=== PATIENT | male | born 1940 | race Caucasian/White ===

== ENCOUNTER 2017-02-17 08:19 | Outpatient (CLI) | payer MEDICARE, OTHER ==
[2017-02-17 11:09] LABS: BASOPHILS # (AUTO) 0.1 10^3/uL (0.0-0.1); BASOPHILS % (AUTO) 1.5 %; EOSINOPHILS # (AUTO) 0.7 10^3/uL (0.0-0.7); HCT - HEMATOCRIT 39.4 % (42.0-52.0); HGB - HEMOGLOBIN 13.4 g/dL (14.0-18.0); LYMPHOCYTES # (AUTO) 1.9 10^3/uL (1.5-3.5); LYMPHOCYTES % (AUTO) 20.7 %; MEAN CORPUSCULAR HEMOGLOBIN 34.5 pg (27.0-31.0); MEAN CORPUSCULAR HGB CONC 34.1 g/dL (32.0-36.0); MEAN PLATELET VOLUME 10.3 fL (7.4-11.4); MONOCYTES # (AUTO) 0.8 10^3/uL (0.0-1.0); MONOCYTES % (AUTO) 8.4 %; NEUTROPHILS # (AUTO) 5.6 10^3/uL (1.5-6.6); NEUTROPHILS % (AUTO) 61.4 %; RED CELL DISTRIBUTION WIDTH 14.5 % (12.0-15.0); UNCORRECTED WHITE BLOOD COUNT 9.1 x10^3/uL; WHITE BLOOD COUNT 9.1 x10^3/uL (4.8-10.8)
[2017-02-17 11:24] LABS: PLATELET ESTIMATE, MANUAL NORMAL (130-450,000) (NORMAL); PLATELET MORPHOLOGY 1+ LARGE PLATELETS (NORMAL)
[2017-02-17 11:36] LABS: ALBUMIN/GLOBULIN RATIO 1.5 (1.0-2.2); BILIRUBIN,TOTAL 0.7 mg/dL (0.2-1.0); BUN - BLOOD UREA NITROGEN 26 mg/dL (6-20); CALCIUM 9.3 mg/dL (8.5-10.3); CARBON DIOXIDE - CO2 27 mmol/L (21-32); CHLORIDE 103 mmol/L (101-111); CHOL/HDL RATIO 5.3 (<5.0); CHOLESTEROL 196 mg/dL; CREATININE 1.1 mg/dL (0.6-1.2); GFR - MDRD 65 (>89); GLUCOSE 98 mg/dL (70-100); HDL CHOLESTEROL 37 mg/dL; LDL/HDL RATIO 3.8 (<3.6); POTASSIUM 4.4 mmol/L (3.5-5.0); SODIUM 137 mmol/L (135-145); TOTAL PROTEIN 6.8 g/dL (6.7-8.2); TRIGLYCERIDES 91 mg/dL; VLDL CHOLESTEROL 18 mg/dL
== END 2017-02-17 08:20 | disposition home or self-care (01) ==
LOC: LAB.F 08:19
PROVIDERS: ATTEND Family Medicine
DX: I10 Essential (primary) hypertension (principal); Z12.5 Encounter for screening for malignant neoplasm of prostate; R73.01 Impaired fasting glucose; I50.9 Heart failure, unspecified
CPT/HCPCS: 36415; 80053; 80061; 85025; G0103; 84153

== ENCOUNTER 2017-07-07 14:36 | Outpatient (CLI) | payer MEDICARE, OTHER | END 2017-07-07 14:37 | LOC: LAB.F 14:36 | PROVIDERS: ATTEND Family Medicine | DX: L97.519 Non-pressure chronic ulcer of other part of right foot with unspecified severity (principal) | CPT/HCPCS: 87070; 87205 ==

== ENCOUNTER 2017-11-08 14:48 | Outpatient (CLI) | payer MEDICARE, OTHER ==
[2017-11-08 17:36] LABS: BASOPHILS # (AUTO) 0.1 10^3/uL (0.0-0.1); BASOPHILS % (AUTO) 1.3 %; EOSINOPHILS # (AUTO) 0.6 10^3/uL (0.0-0.7); EOSINOPHILS % (AUTO) 5.8 %; HGB - HEMOGLOBIN 12.9 g/dL (14.0-18.0); LYMPHOCYTES # (AUTO) 2.2 10^3/uL (1.5-3.5); LYMPHOCYTES % (AUTO) 22.8 %; MEAN CORPUSCULAR HEMOGLOBIN 33.9 pg (27.0-31.0); MEAN CORPUSCULAR HGB CONC 33.6 g/dL (32.0-36.0); MEAN CORPUSCULAR VOLUME 100.6 fL (80.0-94.0); MONOCYTES # (AUTO) 0.7 10^3/uL (0.0-1.0); MONOCYTES % (AUTO) 6.9 %; NEUTROPHILS % (AUTO) 63.2 %; PLT - PLATELET COUNT 190 10^3/uL (130-450); RED BLOOD COUNT 3.81 10^6/uL (4.70-6.10); RED CELL DISTRIBUTION WIDTH 14.3 % (12.0-15.0); WHITE BLOOD COUNT 9.6 x10^3/uL (4.8-10.8)
[2017-11-08 17:59] LABS: BUN - BLOOD UREA NITROGEN 22 mg/dL (6-20); CALCIUM 9.1 mg/dL (8.5-10.3); CARBON DIOXIDE - CO2 27 mmol/L (21-32); CHLORIDE 103 mmol/L (101-111); CREATININE 0.9 mg/dL (0.6-1.2); GFR - MDRD 82 (>89); GLUCOSE 102 mg/dL (70-100); SODIUM 136 mmol/L (135-145)
[2017-11-08 18:41] LABS: CRP - C-REACTIVE PROTEIN < 1.0 mg/dL (0-1.0)
[2017-11-08 18:47] LABS: PLATELET ESTIMATE, MANUAL NORMAL (130-450,000) (NORMAL); PLATELET MORPHOLOGY 2+ LARGE PLATELETS (NORMAL); RBC MORPHOLOGY (MULTIPLE) NORMAL APPEARANCE (NORMAL)
== END 2017-11-08 14:49 | disposition home or self-care (01) ==
LOC: LAB.F 14:48
PROVIDERS: ATTEND Family Medicine
DX: L97.519 Non-pressure chronic ulcer of other part of right foot with unspecified severity (principal); I48.0 Paroxysmal atrial fibrillation; I42.9 Cardiomyopathy, unspecified; R73.01 Impaired fasting glucose; I50.9 Heart failure, unspecified
CPT/HCPCS: 36415; 80048; 85025; 85651; 86140

== ENCOUNTER 2017-11-14 14:00 | Outpatient (CLI) | payer MEDICARE, OTHER ==
[2017-11-14] MEDS ORDERED: GADOBUTROL 10 MMOL/10 ML VIAL ONE (15:18)
[2017-11-14] MEDS ORDERED: GADOBUTROL 10 MMOL/10 ML VIAL IVP ONE (16:06)
--- NOTE | 2017-11-15 00:28 | MRI Report ---
EXAM: RIGHT ANKLE/HINDFOOT MRI WITHOUT AND WITH CONTRAST EXAM DATE: 11/14/2017 04:21 PM. CLINICAL HISTORY: Foot ulcer, right. Nonhealing wound bottom of heel for 6 months. COMPARISON: None. TECHNIQUE: Multiplanar, multisequence T1-weighted and fluid-sensitive sequences of the ankle before a nd after administration of intravenous contrast. IV contrast: 9 mL Gadavist. Other: None. FINDINGS: Bones: No fractures or subluxations. No marrow edema or abnormal enhancement. No bone lesions. Articular Cartilage: Unremarkable. Ligaments: The anterior and posterior tibiofibular, anterior and posterior talofibular, and calcaneof ibular ligaments are intact. The deep and superficial deltoid and spring ligaments are intact. Anterior Tendons: The tibialis anterior, extensor hallucis longus, and extensor digitorum longus tend ons are unremarkable. Medial Tendons: The tibialis posterior, flexor digitorum longus, and flexor hallucis longus tendons a re unremarkable. Lateral Tendons: The peroneus brevis and longus are unremarkable. Achilles Tendon: The Achilles tendon is unremarkable. Musculature: Diffuse posterior foot plantar muscle edema. Other: Small fluid collection ankle joint. Small synovial cyst 1.5 x 1.1 cm posterior aspect of dista l tibiofibular joint. The contents of the sinus tarsi and tarsal tunnel are unremarkable. No plantar fasciitis. The subcutaneous tissues are unremarkable. No abscess or cellulitis. IMPRESSION: 1. Shallow ulceration medial heel with no abscess or osteomyelitis. 2. Nonspecific edema plantar foot muscles. [facility] MUSCULOSKELETAL RADIOLOGY SECTION Referring Provider Line: [phone] SITE ID: [id number]
== END 2017-11-14 14:01 | disposition home or self-care (01) ==
LOC: DI 14:00
PROVIDERS: ATTEND Family Medicine
DX: L97.519 Non-pressure chronic ulcer of other part of right foot with unspecified severity (principal); R60.0 Localized edema

== ENCOUNTER 2019-03-03 11:50 | Outpatient (CLI) | payer MEDICARE, OTHER ==
--- NOTE | 2019-03-05 09:54 | Ultrasound Report ---
Reason: INTERMITTENT CLAUDICATION Procedure Date: 03/03/2019 Accession Number: [id number] / [id number] Procedure: US - Ankle Brachial Index CPT Code: FULL RESULT: EXAM: BILATERAL ANKLE/BRACHIAL INDEX EXAM DATE: 03/03/2019 12:40 PM. CLINICAL HISTORY: INTERMITTENT CLAUDICATION. COMPARISON: None. TECHNIQUE: A blood pressure cuff and pulse volume recording Doppler ultrasound was used to evaluate the arterial pressures in the arms and ankle. No images were acquired. FINDINGS: Brachial pressure: Right brachial artery: 142 mmHg, index 1.00 Left brachial artery: 134 mmHg, index 1.00 Right ankle pressures:: 66 mmHg, index 0.46 Left ankle pressures: 76 mmHg, index 0.56 IMPRESSION: 1. Right ankle/brachial index: 0.46. 2. Left ankle/brachial index: 0.56. ANKLE/BRACHIAL INDEX REFERENCE STANDARDS 1.0-1.4: Normal 0.90-0.99: Borderline < 0.9: Abnormal [facility]
== END 2019-03-03 11:51 | disposition home or self-care (01) ==
LOC: DI 11:50
PROVIDERS: ATTEND Registered Nurse
DX: I73.9 Peripheral vascular disease, unspecified (principal)
CPT/HCPCS: 93922

== ENCOUNTER 2019-03-29 08:02 | Outpatient (CLI) | payer MEDICARE, OTHER ==
--- NOTE | 2019-03-29 17:06 | Ultrasound Report ---
Reason: PERIPHERAL VASCULAR DISEASE Procedure Date: 03/29/2019 Accession Number: [id number] / [id number] Procedure: US - Duplex Lwr Ext Arterial Bilat CPT Code: FULL RESULT: EXAM: Bilateral Lower Extremity Arterial Doppler Ultrasound EXAM DATE: 03/29/2019 09:40 AM. CLINICAL HISTORY: Peripheral vascular disease. Bilateral calf claudication after 1 block. History of hypertension. History of smoking more than 50 years, cigars. COMPARISON: None. TECHNIQUE: Real-time sonographic vascular imaging was performed by the ammunition and explosives handler, utilizing color-flow, Doppler flow, and spectral analysis. Multiple outside sales account representative static images were saved for review. FINDINGS: Scattered calcified plaque in bilateral lower extremity arteries. Right Lower Extremity: DOOR MACHINE OPERATOR: PSV 138 cm/sec. Triphasic waveform. PSFA: PSV 97 cm/sec. Biphasic waveform. MSFA: Occluded. DSFA: Occluded. PFA: PSV 101 cm/sec. Monophasic waveform. POP: PSV 23 cm/sec. Monophasic waveform. GARFIELD: PSV 43 cm/sec. Monophasic waveform. SHEET WRITER: PSV 44 cm/sec. Monophasic waveform. ADELINA: PSV 18 cm/sec. Monophasic waveform. DPA: PSV 31 cm/sec. Monophasic waveform. Left Lower Extremity: DOOR MACHINE OPERATOR: PSV 156 cm/sec. Monophasic waveform. PSFA: PSV 40 cm/sec. Monophasic waveform. MSFA: Occluded. DSFA: PSV 27 cm/sec. Monophasic waveform. PFA: PSV 285 cm/sec. Monophasic waveform. POP: PSV 45 cm/sec. Monophasic waveform. GARFIELD: PSV 31 cm/sec. Monophasic waveform. SHEET WRITER: PSV 25 cm/sec. Monophasic waveform. ADELINA: PSV 8 cm/sec. Monophasic waveform. DPA: PSV 19 cm/sec. Monophasic waveform. IMPRESSION: 1. 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 Right popliteal and calf arteries are patent with monophasic Doppler waveforms. 2. Left mid femoral artery is occluded. Diminished monophasic flow within the distal femoral artery may be from reconstitution via collateral vessels. Monophasic Doppler flow within left popliteal artery and calf arteries. 3. Elevated peak systolic velocity within the left profunda femoral artery, concerning for 50% stenosis. 4. Monophasic Doppler waveform within left common femoral artery raiseS concern for greater than 50% more proximal stenosis. Consider CTA if clinically warranted. [facility] The above call report findings were discussed with Dr. Quezada by Dr. Mariano Fontenot at 05:07 PM on 03/29/2019.
== END 2019-03-29 08:03 | disposition home or self-care (01) ==
LOC: DI 08:02
PROVIDERS: ATTEND Registered Nurse
DX: I73.9 Peripheral vascular disease, unspecified (principal); I77.1 Stricture of artery; I70.202 Unspecified atherosclerosis of native arteries of extremities, left leg
CPT/HCPCS: 93925

== ENCOUNTER 2021-03-08 17:50 | Observation (INO) | payer MEDICARE, OTHER ==
[2021-03-08 18:35] LABS: BASOPHILS # (AUTO) 0.1 10^3/uL (0.0-0.1); BASOPHILS % (AUTO) 0.6 %; EOSINOPHILS # (AUTO) 0.1 10^3/uL (0.0-0.7); EOSINOPHILS % (AUTO) 0.6 %; HCT - HEMATOCRIT 34.5 % (42.0-52.0); HGB - HEMOGLOBIN 11.7 g/dL (14.0-18.0); LYMPHOCYTES # (AUTO) 1.3 10^3/uL (1.5-3.5); LYMPHOCYTES % (AUTO) 8.8 %; MEAN CORPUSCULAR HEMOGLOBIN 34.1 pg (27.0-31.0); MEAN CORPUSCULAR HGB CONC 33.9 g/dL (32.0-36.0); MEAN CORPUSCULAR VOLUME 100.6 fL (80.0-94.0); MEAN PLATELET VOLUME 11.1 fL (7.4-11.4); MONOCYTES # (AUTO) 0.7 10^3/uL (0.0-1.0); MONOCYTES % (AUTO) 4.9 %; NEUTROPHILS % (AUTO) 84.8 %; PLT - PLATELET COUNT 189 10^3/uL (130-450); RED BLOOD COUNT 3.43 10^6/uL (4.70-6.10); RED CELL DISTRIBUTION WIDTH 13.5 % (12.0-15.0); WHITE BLOOD COUNT 14.2 x10^3/uL (4.8-10.8)
[2021-03-08 18:47] LABS: ALBUMIN 4.4 g/dL (3.2-5.5); ALBUMIN/GLOBULIN RATIO 1.3 (1.0-2.2); CALCIUM 9.4 mg/dL (8.5-10.3); CREATININE 1.1 mg/dL (0.6-1.2); POTASSIUM 4.6 mmol/L (3.5-5.0); TOTAL PROTEIN 7.7 g/dL (6.7-8.2)
[2021-03-08 20:32] LABS: BILIRUBIN,URINE NEGATIVE (NEGATIVE); GLUCOSE, URINE (UA) NEGATIVE (NEGATIVE); KETONES,URINE (UA) 15 mg/dL (NEGATIVE); LEUKOCYTE ESTERASE, URINE NEGATIVE (NEGATIVE); NITRITE,URINE NEGATIVE (NEGATIVE); OCCULT BLOOD,URINE TRACE-INTA (NEGATIVE); PROTEIN,URINE NEGATIVE (NEGATIVE); UROBILINOGEN,URINE 0.2 (NORMAL) E.U./dL (NORMAL)
[2021-03-08 20:34] LABS: CLARITY,URINE CLEAR (CLEAR)
--- NOTE | 2021-03-08 21:31 | Ultrasound Report ---
PROCEDURE: Abdomen Limited INDICATIONS: RUQ pain/nausea TECHNIQUE: Real-time focused scanning was performed of the right upper quadrant, with image documentation. COMPARISON: None. FINDINGS: Limited evaluation limited due to limited patient breath-hold demonstrates a coarse sonographic echot exture suggestive of fatty infiltration. There are echogenic shadowing gallstones as well as biliary sludge. Gallstones are noted in the regio n of the gallbladder neck. There is no bladder wall thickening measuring up to approximately 5 mm. No definite pericholecystic fluid or reported sonographic Love sign. No intra or extra hepatic biliary ductal dilatation. The visualized bile duct measures approximately 3 to 4 mm. The right kidney measures 13.7 cm. No hydronephrosis. There are cysts in the right kidney measuring u p to approximately 6.4 cm in the superior pole and 4.5 cm in the inferior pole. IMPRESSION: 1. Cholelithiasis including gallstones in the region of the gallbladder neck with mild wall thickenin g. Although no definite pericholecystic fluid is identified, the findings are suspicious for developi ng cholecystitis. Recommend correlation clinically. 2. No biliary ductal dilatation. Reviewed by: Souleymane Casey MD on 03/08/2021 9:30 PM PDT Approved by: Souleymane Casey MD on 03/08/2021 9:30 PM PDT Station ID: [id number]
[2021-03-08] MEDS ORDERED: SODIUM CHLORIDE 0.9% 1,000 ML IV STA (21:38)
[2021-03-08] MEDS ORDERED: HYDROmorphone 1 MG/ML CARPUJECT IVP STA (21:38)
[2021-03-08] MEDS ORDERED: ONDANSETRON 4 MG/2 ML VIAL IVP STA (21:38)
--- NOTE | 2021-03-08 21:40 | ED Physician Documentation ---
History of Present Illness - Stated complaint Stated Complaint: UPPER ABD PX,NAUSEA - Chief complaint Chief Complaint: Abd Pain - History obtained from History obtained from: Patient, Family - Additonal information Additional information: Patient comes emergency department for chief complaint of right upper quadrant pain and nausea for the last 2 days. Patient states the pain has been so bad that is kept him awake all night for the last 2 nights. Patient denies ever having had these symptoms before. No fevers or chills. No jaundice that he has noticed. He states that he has not had any change in his bowel habits. No urinary symptoms. No cough or shortness of breath. No other complaints at this time. Review of Systems Ten Systems: 10 systems reviewed and negative Constitutional: reports: Reviewed and negative Eyes: reports: Reviewed and negative Ears: reports: Reviewed and negative Nose: reports: Reviewed and negative Throat: reports: Reviewed and negative Cardiac: reports: Reviewed and negative Respiratory: reports: Reviewed and negative GI: reports: Abdominal Pain, Nausea. denies: Vomiting : reports: Reviewed and negative Skin: reports: Reviewed and negative Musculoskeletal: reports: Reviewed and negative Neurologic: reports: Reviewed and negative Psychiatric: reports: Reviewed and negative Endocrine: reports: Reviewed and negative Immunocompromised: reports: Reviewed and negative PD PAST MEDICAL HISTORY - Past Medical History Past Medical History: Yes Cardiovascular: Congestive heart failure, Hypertension, Atrial fibrillation, Other Endocrine/Autoimmune: Other Derm: Eczema - Past Surgical History Past Surgical History: Yes Cardiovascular: Valve replacement - Present Medications Home Medications: Ambulatory Orders Medication Instructions Recorded Confirmed Ascorbic Acid [Vitamin C] 1,000 mg PO DAILY 07/21/17 03/08/21 Aspirin [Aspirin EC] 81 mg PO DAILY 07/21/17 03/08/21 Glucosamine Sulfate 1,500 mg PO DAILY 07/21/17 03/08/21 Metoprolol Tartrate [Lopressor] 50 mg PO DAILY 07/21/17 03/08/21 Multivit-Min/FA/Lycopen/Lutein 1 tab PO DAILY 07/21/17 03/08/21 [Centrum Silver Men Tablet] Spironolactone 25 mg PO DAILY 07/21/17 03/08/21 Ubidecarenone [Co Q-10] 300 mg PO DAILY 07/21/17 03/08/21 lisinopriL [Lisinopril] 20 mg PO DAILY 07/21/17 03/08/21 - Allergies Allergies/Adverse Reactions: Allergies Allergy/AdvReac Type Severity Reaction Status Date / Time oxycodone AdvReac Nausea Verified 03/08/21 18:10 - Social History Does the pt smoke?: Yes Smoking Status: Current every day smoker Does the pt have substance abuse?: No PD ED PE NORMAL - Vitals Vital signs reviewed: Yes - General General: Alert and oriented X 3, No acute distress, Well developed/nourished - HEENT HEENT: Atraumatic, PERRL, EOMI, Moist mucous membranes - Neck Neck: Supple, no meningeal sign - Cardiac Cardiac: RRR, No murmur - Respiratory Respiratory: No respiratory distress, Clear bilaterally - Abdomen Abdomen: Soft, Non distended, Other (Moderate right upper quadrant tenderness, no rebound or guarding.) - Back Back: No CVA TTP - Derm Derm: Normal color, Warm and dry, No rash - Extremities Extremities: No deformity, No edema - Neuro Neuro: Alert and oriented X 3, director of group sales 2-12 intact, Normal speech - Psych Psych: Normal mood, Normal affect Results - Vitals Vitals: Vital Signs - 24 hr 03/08/21 03/08/21 18:03 19:32 Temperature 36.8 C Heart Rate 60 55 L Respiratory 16 17 Rate Blood Pressure 191/56 H 200/73 H O2 Saturation 99 98 Oxygen O2 Source Room air - Labs Labs: Laboratory Tests 03/08/21 03/08/21 03/08/21 18:30 18:30 20:25 WBC 14.2 H RBC 3.43 L Hgb 11.7 L Hct 34.5 L MCV 100.6 H MCH 34.1 H MCHC 33.9 RDW 13.5 Plt Count 189 MPV 11.1 Neut # (Auto) 12.0 H Lymph # (Auto) 1.3 L [place] # (Auto) 0.7 Eos # (Auto) 0.1 Baso # (Auto) 0.1 Absolute Nucleated RBC 0.00 Nucleated RBC % 0.0 Sodium 132 L Potassium 4.6 Chloride 96 L Carbon Dioxide 25 Anion Gap 11.0 BUN 27 H Creatinine 1.1 Estimated GFR (MDRD) 65 L Glucose 133 H Calcium 9.4 Total Bilirubin 1.0 AST 17 ALT 17 Alkaline Phosphatase 53 Total Protein 7.7 Albumin 4.4 Globulin 3.3 Albumin/Globulin Ratio 1.3 Lipase 29 Urine Color YELLOW Urine Clarity CLEAR Urine pH 5.0 Ur Specific [place] 1.025 Urine Protein NEGATIVE Urine Glucose (UA) NEGATIVE Urine Ketones 15 H Urine Occult Blood TRACE-INTA Urine Nitrite NEGATIVE Urine Bilirubin NEGATIVE Urine Urobilinogen 0.2 (NORMAL) Ur Leukocyte Esterase NEGATIVE Ur Microscopic Review NOT INDICATED Urine Culture Comments NOT INDICATED - Rads (name of study) US abd Radiology: Prelim report reviewed, EMP read indepedently, See rad report (Acute cholecystitis) PD MEDICAL DECISION MAKING - ED course Complexity details: reviewed old records ( on) ED course: Patient was worked up with labs and ultrasound of the abdomen, which showed a 1.8 cm stone in the neck of the gallbladder and a thickened gallbladder wall at over 4 mm. Patient was treated with antibiotics and IV fluids and analgesia, as well as antiemetics. I spoke with Dr. Higuera, who is on-call for surgery, and he agreed to admit the patient to his service. Final impression: Acute cholecystitis. Disposition: Admit to surgery in serious condition. Departure - Departure Disposition: ED Place in Observation Condition: Serious Discharge Date/Time: 03/08/21 22:35
[2021-03-08] MEDS ORDERED: AMPICILLIN/SULBACTAM 3 GM in SODIUM CHLORIDE 0.9% MINIBAG 100 ML IV STA (21:44)
[2021-03-08] MEDS ORDERED: HYDROmorphone 0.5 MG/0.5 ML SYRINGE IVP PRN (21:59)
[2021-03-08] MEDS ORDERED: ONDANSETRON 4 MG/2 ML VIAL IVP PRN (21:59)
[2021-03-08] MEDS ORDERED: ACETAMINOPHEN 325 MG TABLET PO PRN (21:59)
[2021-03-08] MEDS ORDERED: SODIUM CHLORIDE FLUSH 0.9% 10 ML SYRINGE IVP PRN (21:59)
[2021-03-08] MEDS ORDERED: ONDANSETRON ODT 4 MG TABLET TL PRN (21:59)
[2021-03-08] MEDS ORDERED: PROCHLORPERAZINE 10 MG/2 ML VIAL IVP PRN (21:59)
[2021-03-08] MEDS ORDERED: ceFAZolin 2 GM/50 ML 2 GM/50 ML BAG IV SCH (23:00)
[2021-03-08] MEDS: D5.45NS W/20 MEQ KCL 1,000 ML IV SCH (23:01)
[2021-03-08 23:53] LABS: CORONAVIRUS 229E-RESP PCR NOT DETECTED; CORONAVIRUS HKU1-RESP PCR NOT DETECTED; CORONAVIRUS NL63-RESP PCR NOT DETECTED; CORONAVIRUS OC43-RESP PCR NOT DETECTED; HUMAN METAPNEUMOVIRUS NOT DETECTED; INFLUENZA A- RESP PCR PANEL NOT DETECTED; RHINOVIRUS/ENTEROVIRUS NOT DETECTED; SARS-CoV-2 -RESP PCR PANEL NOT DETECTED
[2021-03-08 23:54] LABS: B. PARAPERTUSSIS- RESP PCR PAN NOT DETECTED; B. PERTUSSIS- RESP PCR PANEL NOT DETECTED; C. PNEUMONIAE- RESP PCR PANEL NOT DETECTED; INFLUENZA B - RESP PCR PANEL NOT DETECTED; M. PNEUMONIAE- RESP PCR PANEL NOT DETECTED; PARAINFLUENZA VIRUS 1 NOT DETECTED; PARAINFLUENZA VIRUS 2 NOT DETECTED; PARAINFLUENZA VIRUS 3 NOT DETECTED; PARAINFLUENZA VIRUS 4 NOT DETECTED; RSV- RESP PCR PANEL NOT DETECTED
[2021-03-09] MEDS: AMPICILLIN/SULBACTAM 3 GM in SODIUM CHLORIDE 0.9% MINIBAG 100 ML IV SCH ×2 (04:26→12:11)
[2021-03-09] MEDS: SODIUM CHLORIDE FLUSH 0.9% 10 ML SYRINGE IVP SCH ×2 (04:26→08:40)
[2021-03-09] MEDS ORDERED: BUPIVACAINE 0.25% PF 30 ML VIAL ONE (07:33)
[2021-03-09] MEDS ORDERED: DEXAMETHASONE 4 MG/ML VIAL ONE (07:39)
[2021-03-09] MEDS ORDERED: ROCURONIUM 50 MG/5 ML VIAL ONE (07:39)
[2021-03-09] MEDS ORDERED: SEVOFLURANE 250 ML LIQUID INH ONE (07:39)
[2021-03-09] MEDS ORDERED: ONDANSETRON 4 MG/2 ML VIAL ONE (07:39)
[2021-03-09] MEDS ORDERED: PROPOFOL 200 MG/20 ML VIAL IVP ONE (07:39)
[2021-03-09] MEDS ORDERED: fentaNYL 100 MCG/2 ML VIAL ONE (07:39)
[2021-03-09] MEDS ORDERED: LIDOCAINE-MPF 2% 5 ML VIAL ONE (07:39)
--- NOTE | 2021-03-09 07:46 | ANESTHESIA ---
Pre-Anesthesia VS, & Labs - Diagnosis cholelithiasis - Procedure Laparoscopic Cholecystectomy Vital Signs: Temp Pulse Resp BP Pulse Ox 36.7 C 77 20 125/57 L 97 03/09/21 04:41 03/09/21 04:41 03/09/21 04:41 03/09/21 04:41 03/09/21 04:41 Height: 5 ft 11 in Weight (kg): 90.5 kg Body Mass Index: 27.8 BMI Classification: Overweight - NPO >8 hours - Lab Results Current Lab Results: Laboratory Tests 03/08/21 18:30: Sodium 132 L, Potassium 4.6, Chloride 96 L, Carbon Dioxide 25, Anion Gap 11.0, BUN 27 H, Creatinine 1.1, Estimated GFR (MDRD) 65 L, Glucose 133 H, Calcium 9.4, Total Bilirubin 1.0, AST 17, ALT 17, Alkaline Phosphatase 53, T otal Protein 7.7, Albumin 4.4, Globulin 3.3, Albumin/Globulin Ratio 1.3, Lipase 29 03/08/21 18:30: WBC 14.2 H, RBC 3.43 L, Hgb 11.7 L, Hct 34.5 L, MCV 100.6 H, MCH 34.1 H, MCHC 33.9, RDW 13.5, Plt Count 189, MPV 11.1, Neut # (Auto) 12.0 H, Lymph # (Auto) 1.3 L, [place] # (Auto) 0.7, Eos # (Auto) 0.1, Baso # (Auto) 0.1, Absolute Nucleated RBC 0.00, Nucleated RBC % 0.0 Lab results reviewed: Yes Fish Bones: 03/08/21 18:30 03/08/21 18:30 Home Medications and Allergies Active Medications Acetaminophen (Acetaminophen 325 Mg Tablet) 650 mg PO Q4HR PRN PRN Reason: Pain 1 to 4 Hydromorphone HCl (Hydromorphone 0.5 Mg/0.5 Ml Syringe) 0.5 mg IVP Q2H PRN PRN Reason: Pain 8 to 10 Potassium Chloride/Dextrose/Sod Cl (D5.45ns W/20 Meq Kcl) 1,000 mls @ 100 mls/hr IV .Q10H EREN Last Infusion: 03/09/21 05:03 Dose: 100 mls/hr Documented by: Ampicillin Sodium/Sulbactam (Sodium 3 gm/ Sodium Chloride) 100 mls @ 200 mls/hr IV Q6H [facility] Last Infusion: 03/09/21 05:02 Dose: Infused Documented by: Metoprolol Tartrate (Metoprolol Tartrate 50 Mg Tablet) 25 mg PO BID [facility] Ondansetron HCl (Ondansetron Odt 4 Mg Tablet) 4 mg TL Q6HR PRN PRN Reason: Nausea / Vomiting Ondansetron HCl (Ondansetron 4 Mg/2 Ml Vial) 4 mg IVP Q6HR PRN PRN Reason: Nausea / Vomiting Prochlorperazine Edisylate (Prochlorperazine 10 Mg/2 Ml Vial) 10 mg IVP Q6HR PRN PRN Reason: Nausea / Vomiting Last Admin: 03/09/21 01:45 Dose: 10 mg Documented by: Sodium Chloride (Sodium Chloride Flush 0.9% 10 Ml Syringe) 10 ml IVP PRN PRN PRN Reason: NEEDED PER PROVIDER ORDERS Sodium Chloride (Sodium Chloride Flush 0.9% 10 Ml Syringe) 10 ml IVP 0100,0900,1700 [facility] Last Admin: 03/09/21 04:26 Dose: 10 ml Documented by: Ascorbic Acid [Vitamin C] 1,000 mg PO DAILY 07/21/17 Aspirin [Aspirin EC] 81 mg PO DAILY 07/21/17 Glucosamine Sulfate 1,500 mg PO DAILY 07/21/17 Metoprolol Tartrate [Lopressor] 50 mg PO DAILY 07/21/17 Multivit-Min/FA/Lycopen/Lutein [Centrum Silver Men Tablet] 1 tab PO DAILY 07/21/17 Spironolactone 25 mg PO DAILY 07/21/17 Ubidecarenone [Co Q-10] 300 mg PO DAILY 07/21/17 lisinopriL [Lisinopril] 20 mg PO DAILY 07/21/17 Allergies/Adverse Reactions: Allergies Allergy/AdvReac Type Severity Reaction Status Date / Time oxycodone AdvReac Nausea Verified 03/08/21 18:10 Anes History & Medical History - Anesthetic History Anesthesia Complications: reports: No previous complications - Medical History Cardiovascular: reports: Congestive heart failure, Hypertension, Atrial fibrillation, Valve disorder (S/P tissue AVR), Other Endocrine/Autoimmune: reports: Other Skin: reports: Eczema Smoking Status: Current every day smoker - Surgical History Cardiothoracic: reports: Valve replacement Orthopedic: reports: Other (knee and shoulder arthroscopies) Exam General: Alert Dental: WNL Mouth Opening: Greater than 4 Fingerbreadths Neck Mobility: Normal Mallampati classification: II Respiratory: Lungs clear Cardiovascular: Regular rate Plan Anesthesia Type: General Consent for Procedure(s) Verified and Reviewed: Yes Code Status: Attempt Resuscitation (I had lengthy discussion as 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 He wished to be full code during surgical time but not prolonged efforts if it is thought he would be neurologically injured.) ASA classification: 3-Severe systemic disease Is this case an emergency?: Yes
[2021-03-09] MEDS ORDERED: METOPROLOL TARTRATE 50 MG TABLET PO SCH (09:00)
--- NOTE | 2021-03-09 09:04 | HISTORY & PHYSICAL EXAMINATION ---
Chief Complaint - Chief Complaint Chief Complaint: rigth upper quadrant pain for 3 days now History of Present Illness - Admitted From Admitted From:: ED - History Obtained From Records Reviewed: yes History obtained from: pt Exam Limitations: none - History of Present Illness HPI Comment/Other: 3 days of significant right upper quadrant pain. Not improving. No similar symptoms in the past History - Past Medical History Cardiovascular: reports: Congestive heart failure, Hypertension, Atrial fibrillation, Valve disorder (S/P tissue AVR), Other Endocrine/Autoimmune: reports: Other Derm: reports: Eczema MRSA Hx?: No - Past Surgical History Ortho: reports: Other (knee and shoulder arthroscopies) Cardiovascular: reports: Valve replacement Meds/Allgy - Home Medications Home Medications: Ambulatory Orders Medication Instructions Recorded Confirmed Ascorbic Acid [Vitamin C] 1,000 mg PO DAILY 07/21/17 03/08/21 Aspirin [Aspirin EC] 81 mg PO DAILY 07/21/17 03/08/21 Glucosamine Sulfate 1,500 mg PO DAILY 07/21/17 03/08/21 Metoprolol Tartrate [Lopressor] 50 mg PO DAILY 07/21/17 03/08/21 Multivit-Min/FA/Lycopen/Lutein 1 tab PO DAILY 07/21/17 03/08/21 [Centrum Silver Men Tablet] Spironolactone 25 mg PO DAILY 07/21/17 03/08/21 Ubidecarenone [Co Q-10] 300 mg PO DAILY 07/21/17 03/08/21 lisinopriL [Lisinopril] 20 mg PO DAILY 07/21/17 03/08/21 - Allergies Allergies/Adverse Reactions: Allergies Allergy/AdvReac Type Severity Reaction Status Date / Time oxycodone AdvReac Nausea Verified 03/08/21 18:10 Review of Systems - Other Findings Other Findings: 10 pt ros as above otherwise unremarkable denies heart or lung problem currently. Exam - Vital Signs Reviewed Vital Signs: Yes Vital Signs: Vital Signs x48h Temp Pulse Resp BP Pulse Ox 03/09/21 07:49 36.6 C 75 18 132/51 H 95 03/09/21 04:41 36.7 C 77 20 125/57 L 97 - Physical Exam General Appearance: positive: Alert Eyes Bilateral: positive: PERRL, EOMI, No scleral icterus ENT: positive: No signs of dehydration Neck: positive: No JVD Respiratory: positive: No respiratory distress, Breath sounds nml Cardiovascular: positive: Regular rate & rhythm Abdomen: positive: No distention, Tenderness (ruq) Neurologic/Psychiatric: positive: Oriented x3 Conclusion/Plan - Lab Results Lab results reviewed: Yes Fish Bones: 03/08/21 18:30 03/08/21 18:30 - Diagnostic Imaging Results Diagnostic Imaging Results: positive: Read independently (large gallstones causing gallbladder obstruction) - Other Other Results/Comments: cholecystitis. plan lap micaela. parq held and consent obtained
[2021-03-09] MEDS ORDERED: ePHEDrine 50 MG/ML VIAL IVP ONE (09:42)
[2021-03-09] MEDS ORDERED: PHENYLEPHRINE 10 MG/ML VIAL ONE (09:42)
[2021-03-09] MEDS ORDERED: ACETAMINOPHEN 1,000 MG/100 ML 100 ML IV ONE (09:42)
[2021-03-09] MEDS ORDERED: BUPIVACAINE 0.25% PF 30 ML VIAL SUBQ ONE (09:59)
[2021-03-09] MEDS ORDERED: ONDANSETRON 4 MG/2 ML VIAL IVP PRN ×2 (10:03→11:21)
[2021-03-09] MEDS ORDERED: HYDROmorphone 0.5 MG/0.5 ML SYRINGE IVP PRN ×2 (10:03→11:21)
[2021-03-09] MEDS ORDERED: ePHEDrine 50 MG/ML VIAL IVP PRN (10:03)
[2021-03-09] MEDS ORDERED: NALOXONE 0.4 MG/ML VIAL IVP PRN (10:03)
[2021-03-09] MEDS ORDERED: METOCLOPRAMIDE 10 MG/2 ML VIAL IVP PRN (10:03)
[2021-03-09] MEDS ORDERED: ATROPINE ABBOJECT 1 MG/10 ML SYRINGE IVP PRN (10:03)
[2021-03-09] MEDS ORDERED: fentaNYL 100 MCG/2 ML VIAL IVP PRN (10:03)
[2021-03-09] MEDS ORDERED: MORPHINE 2 MG/ML CARPUJECT IVP PRN (10:03)
[2021-03-09] MEDS: D5.45NS W/20 MEQ KCL 1,000 ML IV SCH ×2 (10:30→12:46)
[2021-03-09] MEDS ORDERED: LACTATED RINGERS 1,000 ML IV SCH (11:00)
[2021-03-09] MEDS ORDERED: HYDROcod/ACETAM 5/325 MG TABLET PO PRN (11:21)
--- NOTE | 2021-03-09 11:21 | OPERATIVE REPORT ---
Operative Report - General Admit Date: 03/08/21 Procedure Date: 03/09/21 Planned Procedure: lap micaela Pre-Op Diagnosis: cholecystitis Procedure Performed: lap cholecystectomy Post Op Diagnosis: cholecystitis - Procedure Note Primary Surgeon: bernarda neri Anesthesia Technique: General ET tube, Local Pathology: gallbladder Estimated Blood Loss (mL): 15 Drain/Tube Type: Other (none) Indications: cholecystitis Findings: cholecystitis Complications: none - Other Other Information/Narrative: The patient was properly identified, brought to the operating room and placed in supine position. Sequential compression devices were placed. General endotracheal anesthesia was induced. The patient was prepped and draped in a sterile fashion and given preoperative antibiotics. Local anesthetic was given to incision areas. An incision was made in the periumbilical area. Dissection proceeded down to fascia. The fascia was incised lifted upwards and abdomen entered with a Veress needle. CO2 was insufflated to a pressure of 15. An 11 mm trocar followed by a 30 degree scope was placed. There was no evidence of injury from Veress needle or trocar placement. Under direct vision 2 5 mm trochars were placed in the right upper quadrant and an 11 mm trocar was placed in the epigastrium. Body of the gallbladder was retracted anterior. Lateral attachments were partially taken down further mobilizing the gallbladder more anterior and away from the duodenum. The infundibulum of the gallbladder was then retracted right lateral and caudad. With minimal use of cautery a large bare cystic plate area or window was carefully created. The cystic duct was inspected from right lateral and left lateral positions. [] The cystic duct was then clipped at the gallbladder and 3 times slightly proximal and sharply divided. The cystic artery was clipped at the gallbladder and then 2 times slightly proximal and sharply divided. The gallbladder was mobilized off from the bed of the liver with hook cautery. The gallbladder was placed in Endo Catch bag and brought out through the epigastric trocar site. Hemostasis was assured. Trochars were removed under direct vision. Fascia at the larger trocar sites was closed with [id number] are running 0 Vicryl suture. Subcutaneous tissue was irrigated and skin closed with interrupted 4-0 Monocryl. Dressings were applied. Patient tolerated the procedure well was awakened and brought to recovery in good condition.
[2021-03-09] MEDS ORDERED: LACTATED RINGERS 200 ML IV ONE (11:23)
--- NOTE | 2021-03-09 16:38 | PHARMACY PROGRESS NOTE ---
- Best Possible Medication History Admit Date and Time: 03/08/21 8094 Processed by: Nursing Medication History completed: Yes As the person ultimately responsible for medication therapy, providers are able to order a medication from an existing home medication list in [facility] via the "Reconcile Routine" prior to Confirmation of that medication by it technical support specialist. Such practice is discouraged except when the physician, in their clinical judgment, deems that a medical need exists for a medication without regard to previous use.
[2021-03-09 18:52] VITALS: BP 115/50
--- NOTE | 2021-03-09 18:57 | ANESTHESIA POST OP EVALUATION ---
Anesthesia Post Eval - Post Anesthesia Eval Vitals: Last Vital Signs Temp 36.4 C L 03/09/21 18:00 Pulse 79 03/09/21 18:00 Resp 18 03/09/21 18:00 BP 115/50 L 03/09/21 18:00 Pulse Ox 96 03/09/21 18:00 CV Function Including HR & BP: Stable Pain Control: Satisfactory Nausea & Vomiting: Negative Mental Status: Baseline Respiratory Status: Airway Patent Hydration Status: Satisfactory Anesthesia Complications: None
[2021-03-09] MEDS ORDERED: METOPROLOL TARTRATE 25 MG TABLET PO SCH (21:00)
--- NOTE | 2021-03-26 08:19 | PROVIDER PROGRESS NOTE ---
Subjective - General Admit Date: 03/08/21 Procedure Date: 03/09/21 (late entry) Post Op Days: 17 Procedure Performed: aris micaela - Review of Systems Wound/Incisions: positive: Dressing dry and intact General: positive: No symptoms Pulmonary: positive: No symptoms Cardiovascular: positive: No symptoms Gastrointestinal: positive: No symptoms Objective - Lab Results Lab Results: 03/08/21 18:30 03/08/21 18:30
--- NOTE | 2021-03-26 08:23 | Discharge Plan ---
Discharge Plan Problem Reviewed?: Yes Disposition: Home, Self Care Condition: Good Prescriptions: HYDROcod/ACETAM 5/325 [[place] 5/325] 1 each PO Q6H PRN #30 tablet PRN Reason: Pain Ondansetron Odt [Zofran Odt] 4 mg PO Q6H PRN #10 tablet PRN Reason: Nausea / Vomiting Diet: Regular Activity Restrictions: No Restrictions Shower Restrictions: No Driving Restrictions: No No Smoking: If you smoke, Please STOP! Call for help. Follow-up with: Naya Tee ARNP [Primary Care Provider] -
== END 2021-03-09 18:45 | disposition home or self-care (01) ==
LOC: ED 17:50 → MS3 21:59
PROVIDERS: ADMIT Surgery; ATTEND Surgery
PROC: 0FT44ZZ Resection of Gallbladder, Percutaneous Endoscopic Approach (ICD-10-PCS; principal; 2021-03-09 09:00)
DX: K80.12 Calculus of gallbladder with acute and chronic cholecystitis without obstruction (principal); I11.0 Hypertensive heart disease with heart failure; I50.9 Heart failure, unspecified; I48.91 Unspecified atrial fibrillation; Z20.822 Contact with and (suspected) exposure to COVID-19; F17.200 Nicotine dependence, unspecified, uncomplicated
CPT/HCPCS: 36415; 47562; 76705; 80053; 81003; 83690; 85025; 87631; 96365; 96366; 96367; 96375; 96376; 99285; J0131; J1170; J3490; J7120; 0202U; 81001; 87086; 88304

== ENCOUNTER 2023-07-07 09:45 | Inpatient (IN) | payer MEDICARE, OTHER ==
--- NOTE | 2023-07-07 10:09 | ED Physician Documentation ---
History of Present Illness - Stated complaint Stated Complaint: TRANSFUSION SENT BY PCP - History obtained from History obtained from: Patient - Additonal information Additional information: 83-year-old gentleman with history of valvular disease on aspirin, no other anticoagulants has had shortness of breath and fatigue for the last 3 weeks or so. He denies abdominal pain. He went to the clinic and had labs drawn and they called him to the emergency department because he had a hemoglobin of 5.7. He has a listed history of "anemia of chronic disease." That said, I do not see any past values nearly as impressive as the 5.7. For example he was here 2 years ago for cholecystectomy at which time his hemoglobin was 11.7. He has chronic constipation, denies dark or tarry stools. Denies history of GI bleeding or any form of cancer. PD PAST MEDICAL HISTORY - Past Medical History Cardiovascular: Congestive heart failure, Hypertension, Atrial fibrillation, Valve disorder (S/P tissue AVR), Other Endocrine/Autoimmune: Other Derm: Eczema - Past Surgical History Past Surgical History: Yes Ortho: Other (knee and shoulder arthroscopies) Cardiovascular: Valve replacement - Present Medications Home Medications: Ambulatory Orders Medication Instructions Recorded Confirmed Ascorbic Acid [Vitamin C] 1,000 mg PO DAILY 07/21/17 03/08/21 Aspirin [Aspirin EC] 81 mg PO DAILY 07/21/17 03/08/21 Glucosamine Sulfate 1,500 mg PO DAILY 07/21/17 03/08/21 Metoprolol Tartrate [Lopressor] 50 mg PO DAILY 07/21/17 03/08/21 Mv-Min/Folic/K1/Lycopen/Lutein 1 tab PO DAILY 07/21/17 03/08/21 [Centrum Silver Men Tablet] Spironolactone 25 mg PO DAILY 07/21/17 03/08/21 Ubidecarenone [Co Q-10] 300 mg PO DAILY 07/21/17 03/08/21 lisinopriL [Lisinopril] 20 mg PO DAILY 07/21/17 03/08/21 HYDROcod/ACETAM 5/325 [[place] 5/325] 1 each PO Q6H PRN #30 tablet 03/09/21 Ondansetron Odt [Zofran Odt] 4 mg PO Q6H PRN #10 tablet 03/09/21 - Allergies Allergies/Adverse Reactions: Allergies Allergy/AdvReac Type Severity Reaction Status Date / Time oxycodone AdvReac Nausea Verified 07/07/23 10:09 - Social History Does the pt smoke?: Yes Smoking Status: Current every day smoker Does the pt have substance abuse?: No PD ED PE NORMAL - Vitals Vital signs reviewed: Yes - General General: Alert and oriented X 3, No acute distress - HEENT HEENT: PERRL, EOMI - Neck Neck: Supple, no meningeal sign, No bony TTP - Cardiac Cardiac: Other (Irregular with systolic murmur, 3 out of 6 heard best at the left upper sternal border) - Respiratory Respiratory: No respiratory distress, Clear bilaterally - Abdomen Abdomen: Non tender - Rectal Rectal: Other (Darker stool in the vault, fairly firm. Not overtly melanic but dark.) - Extremities Extremities: No edema, No calf tenderness / cord - Neuro Neuro: Alert and oriented X 3, Normal speech Results - Vitals Vitals: Vital Signs - 24 hr 07/07/23 07/07/23 07/07/23 10:07 12:08 12:23 Temperature 37.1 C 36.7 C 36.5 C Heart Rate 73 Heart Rate [ 63 64 Monitoring electrodes] Respiratory 20 18 18 Rate Blood Pressure 140/44 H Blood Pressure 128/50 L 145/78 H [Left Brachial artery] O2 Saturation 100 100 100 Oxygen O2 Source Room air - Labs Labs: Microbiology 07/07/23 10:40 Occult Blood - Final Stool Laboratory Tests 07/07/23 07/07/23 07/07/23 10:24 10:24 10:24 WBC 9.5 RBC 1.82 L Hgb 5.3 L* Hct 17.1 L* MCV 94.0 MCH 29.1 MCHC 31.0 L RDW 14.3 Plt Count 225 MPV 11.3 Neut # (Auto) 7.2 H Lymph # (Auto) 1.3 L [place] # (Auto) 0.8 Eos # (Auto) 0.3 Baso # (Auto) 0.1 Absolute Nucleated RBC 0.00 Nucleated RBC % 0.0 PT 12.5 INR 1.1 Sodium 135 Potassium 4.4 Chloride 104 Carbon Dioxide 24 Anion Gap 7.0 BUN 30 H Creatinine 1.2 Estimated GFR (MDRD) 58 L Glucose 105 H Calcium 8.8 Blood Type Blood Type Recheck Antibody Screen Crossmatch IS Only 07/07/23 07/07/23 10:24 10:26 WBC RBC Hgb Hct MCV MCH MCHC RDW Plt Count MPV Neut # (Auto) Lymph # (Auto) [place] # (Auto) Eos # (Auto) Baso # (Auto) Absolute Nucleated RBC Nucleated RBC % PT INR Sodium Potassium Chloride Carbon Dioxide Anion Gap BUN Creatinine Estimated GFR (MDRD) Glucose Calcium Blood Type O POSITIVE Blood Type Recheck O POSITIVE Antibody Screen NEGATIVE Crossmatch IS Only See Detail PD Medical Decision Making - ED course ED course: 83-year-old gentleman with history of bovine aortic valve replacement about 11 years ago presents with fatigue and shortness of breath and was found in the clinic to have symptomatic anemia with a hemoglobin of 5.7. Will repeat, obtain type and screen and cross for 2 units, plan to perform rectal exam for guaiac. These labs were done yesterday and now his hemoglobin is even lower and he is found to be guaiac positive on CBC with normal INR and BMP only notable for mildly elevated BUN probably from the bleeding. He was administered Protonix and a call to the on-call surgeon at 11:45 AM and left voicemail. Spoke with Dr Holman, @ [phone], Who will do an EGD tomorrow. Does not need him scoped at this point prep for lower endoscopy at this point. Spoke with Dr. eParce straight thereafter for admission. Departure - Departure Disposition: [facility] DC/[place] Clinical Impression: GI bleed Condition: Serious
[2023-07-07 10:32] LABS: BASOPHILS # (AUTO) 0.1 10^3/uL (0.0-0.1); BASOPHILS % (AUTO) 0.9 %; EOSINOPHILS # (AUTO) 0.3 10^3/uL (0.0-0.7); EOSINOPHILS % (AUTO) 2.6 %; LYMPHOCYTES # (AUTO) 1.3 10^3/uL (1.5-3.5); LYMPHOCYTES % (AUTO) 13.1 %; MEAN CORPUSCULAR HEMOGLOBIN 29.1 pg (27.0-31.0); MEAN PLATELET VOLUME 11.3 fL (7.4-11.4); MONOCYTES # (AUTO) 0.8 10^3/uL (0.0-1.0); NEUTROPHILS # (AUTO) 7.2 10^3/uL (1.5-6.6); NEUTROPHILS % (AUTO) 75.1 %; PLT - PLATELET COUNT 225 10^3/uL (130-450); RED BLOOD COUNT 1.82 10^6/uL (4.70-6.10); RED CELL DISTRIBUTION WIDTH 14.3 % (12.0-15.0); WHITE BLOOD COUNT 9.5 x10^3/uL (4.8-10.8)
[2023-07-07 10:34] LABS: HCT - HEMATOCRIT 17.1 % (42.0-52.0); HGB - HEMOGLOBIN 5.3 g/dL (14.0-18.0)
[2023-07-07 10:36] LABS: INR 1.1 (0.8-1.2); PT - PROTHROMBIN TIME 12.5 secs (9.9-12.6)
[2023-07-07 10:52] LABS: CALCIUM 8.8 mg/dL (8.5-10.3); CREATININE 1.2 mg/dL (0.6-1.3); POTASSIUM 4.4 mmol/L (3.5-4.5)
[2023-07-07] MEDS ORDERED: PANTOPRAZOLE 40 MG VIAL IVP STA (11:38)
[2023-07-07] MEDS ORDERED: ACETAMINOPHEN 325 MG TABLET PO PRN (14:21)
[2023-07-07] MEDS ORDERED: ONDANSETRON 4 MG/2 ML VIAL IVP PRN (14:21)
[2023-07-07] MEDS ORDERED: SODIUM CHLORIDE FLUSH 0.9% 10 ML SYRINGE IVP PRN (14:21)
--- NOTE | 2023-07-07 16:16 | CONSULTATION NOTE ---
Surgery Consult - Admit Date Hospital Admission Date: 07/07/23 - Consult Date Consult Date: 07/07/23 Requesting Provider: Dr. Cantu - Chief Complaint Chief Complaint: SOB, Weakness - Home Meds/Allergies Home Medications: Patient History Medication Instructions Recorded Confirmed Ascorbic Acid [Vitamin C] 1,000 mg PO DAILY 07/21/17 03/08/21 Aspirin [Aspirin EC] 81 mg PO DAILY 07/21/17 03/08/21 Glucosamine Sulfate 1,500 mg PO DAILY 07/21/17 03/08/21 Metoprolol Tartrate [Lopressor] 50 mg PO DAILY 07/21/17 03/08/21 Mv-Min/Folic/K1/Lycopen/Lutein 1 tab PO DAILY 07/21/17 03/08/21 [Centrum Silver Men Tablet] Spironolactone 25 mg PO DAILY 07/21/17 03/08/21 Ubidecarenone [Co Q-10] 300 mg PO DAILY 07/21/17 03/08/21 lisinopriL [Lisinopril] 20 mg PO DAILY 07/21/17 03/08/21 Allergies/Adverse Reactions: Allergies Allergy/AdvReac Type Severity Reaction Status Date / Time oxycodone AdvReac Nausea Verified 07/07/23 10:09 - Vital Signs Vital Signs: Last Vital Signs Temp 97.7 F 07/07/23 15:44 Pulse 61 07/07/23 15:44 Resp 14 07/07/23 15:44 BP 141/62 H 07/07/23 15:44 Pulse Ox 99 07/07/23 15:44 O2 Flow Rate Intake & Output: Intake & Output 07/04/23 07/05/23 07/06/23 07/07/23 23:59 23:59 23:59 23:59 Intake Total 600 Balance 600 - Lab Results Result Diagrams: 07/07/23 10:24 07/07/23 10:24 - Consultation Note Consultation Note: General Surgery Consultation Note Assessment: 1) Anemia, associated with guaiac + stool 2) GERD 3) History AVR (porcine) Recommendation: 1) EGD. The patient has decline the offer to perform simultaneous colonoscopy 2) General diet today; NPO after midnight <><><><><><><><><><> Reason for Consultation Request for upper endoscopy Chief Complaint Weakness, SOB HPI 83 male with 3 weeks of progressive SOB, fatigue, weakness. Found to be profoundly anemia in ED. Admitted for blood transfusion and endoscopic examination of the GI tract. The patient admits to taking a baby aspirin daily but no recent use of NSAID's. Drinks several cups of coffee daily. Admits to nocturnal GERD and heartburn for which he uses a PPI. Has never had a colon examination and is not interested in having one now. Denies a FH of colon cancer. Past Medical History Anemia of chronic disease Eczema, HTN, AFib, CHF Past Surgical History Laparoscopic cholecystectomy Aortic valve replacement (porcine) Family History Negative for colon cancer, UC, Crohn's Social History Cig + ETOH Current Medications See "Medication" section Allergies See "Allergy" section ROS Pertinent positives Weakness, fatigue All other reviewed systems negative Physical Examination Vital Signs: See "Vital Signs" section BMI: 27 GENERAL APPEARANCE: Normal development, normal body habitus, normal grooming PSYCHIATRIC: AAO; Comfortable EYES: Pupils equal, round and reactive to light, sclera anicteric EARS, NOSE, MOUTH, THROAT: Hearing normal, oral mucous membranes moist and wit hout lesions; NECK: No crepitus, lymphadenopathy, or thyromegaly LUNGS: Clear to auscultation without wheezing; No use of accessory muscles to breathe CARDIOVASCULAR: Heart-NSR; Palpable carotid arteries - no bruits; ABD: Soft, non-distended, no tenderness LYMPHATIC: Neck, Axillae, Groin no palpable adenopathy SKIN: Anicteric; No rashes, lesions, ulcerations Labs See "Labs" section Imaging N/A Consent: Mayank has been counseled for the procedure, it's indications, risks, benefits and expected outcome as well as alternative therapies. We specifically discussed risks associated with anesthesia, bleeding, infection, injury to surrounding structures which may require additional surgery, and the possible need for conversion to an open procedure. We also discussed the possible need for a blood transfusion with its risks and benefits. Mayank understands, agrees, and consents to the proposed operative strategy and requests that we proceed with the procedure as outlined in our discussion. Fran Holman MD, [facility] General Surgery Service [phone]
--- NOTE | 2023-07-07 17:42 | HISTORY & PHYSICAL EXAMINATION ---
Chief Complaint - Chief Complaint Chief Complaint: SOB w/ fatigue History of Present Illness - Admitted From Admitted From:: ED - History Obtained From Records Reviewed: Yes History obtained from: Patient Exam Limitations: N/A - History of Present Illness HPI Comment/Other: Mr. Henderson is an 83 y/o M, presents POV to ED with SOB and fatigue for the last 3 weeks. History significant for anemia, AVR, PVD, and HTN. He takes aspirin daily and no other anticoagulants. He went to the clinic yesterday, labs were drawn, and he was called today and advised to come to the ED because his hemoglobin was 5.7. Since his onset of SOB and fatigue 3 weeks ago, he reports intermittently taking additional aspirin at night to aid with sleep. He denies taking extra every night because he "knows what it does to your stomach." He endorses headache, lightheadedness, and chronic constipation. He denies abdominal pain, nausea, vomiting, chest pain, hematochezia, or dark/tarry stools. Denies history of GI bleeding or any form of cancer. History - Past Medical History Cardiovascular: reports: Congestive heart failure, Hypertension, Peripheral Vascular Disease, Atrial fibrillation, Valve disorder (S/P tissue AVR) Respiratory: reports: None Neuro: reports: None Endocrine/Autoimmune: reports: None GI: reports: Hiatal hernia (Pt reports he "aspirates" food at times d/t his hernia), Chronic constipation : reports: None HEENT: reports: None Psych: reports: None Derm: reports: Eczema MRSA Hx?: No Other Past Medical History: chews nicotine gum - Past Surgical History General: reports: Cholecystectomy Ortho: reports: Arthroscopic surgery (Shoulder and knee) Cardiovascular: reports: Valve replacement (Aortic valve replacement) - Family & Social History Family History: Mother: (Unsure of specific diagnoses), Father: , Alcoholism Living arrangement: At home Living Situation: With spouse/s.o. - Substance History Use: Uses substance without health or social issues: NONE Abuse: Recurrent use of substance despite neg consequences: NONE Dependence: Experiences withdrawal or developed tolerances: NONE Tobacco Details: Cigarettes (Approx. 60 years of smoking, reports he quit in 2019) - POLST Patient has POLST: No POLST Status: DNR (Confirmed w/ pt on 07/07/23) Meds/Allgy - Home Medications Home Medications: Ambulatory Orders Medication Instructions Recorded Confirmed Ascorbic Acid [Vitamin C] 1,000 mg PO DAILY 07/21/17 07/08/23 Aspirin [Aspirin EC] 81 mg PO DAILY 07/21/17 07/07/23 Glucosamine Sulfate 1,500 mg PO DAILY 07/21/17 07/08/23 Metoprolol Tartrate [Lopressor] 50 mg PO BID 07/21/17 07/07/23 Mv-Min/Folic/K1/Lycopen/Lutein 1 tab PO DAILY 07/21/17 07/08/23 [Centrum Silver Men Tablet] Spironolactone 25 mg PO DAILY 07/21/17 07/07/23 Ubidecarenone [Co Q-10] 300 mg PO DAILY 07/21/17 07/08/23 lisinopriL [Lisinopril] 20 mg PO DAILY 07/21/17 07/07/23 Atorvastatin Calcium 40 mg PO HS 07/07/23 07/07/23 Lansoprazole [Prevacid] 30 mg PO DAILY 07/08/23 07/08/23 Pantoprazole [Protonix] 40 mg PO BID #60 tablet 07/08/23 - Allergies Allergies/Adverse Reactions: Allergies Allergy/AdvReac Type Severity Reaction Status Date / Time oxycodone AdvReac Nausea Verified 07/07/23 10:09 Review of Systems - Constitutional Constitutional: reports: Fatigue - Cardiovascular Cariovascular: reports: Lightheadedness, Other (Bilateral calf pain when walking more than 1 block) - Respiratory Respiratory: reports: SOB with exertion (Pt states showering induces SOB) - Neurological Neurological: reports: Headache (Rates 2/10, no radiation, no vision loss) - All Other Systems All Other Systems: reports: Reviewed and negative Exam - Vital Signs Reviewed Vital Signs: Yes Vital Signs: Vital Signs x48h Temp Pulse Pulse Resp BP BP Pulse Ox 07/07/23 15:44 36.5 C 61 14 141/62 H 99 07/07/23 15:30 37 C 59 L 20 158/60 H 100 07/07/23 14:22 36.3 C L 62 18 135/58 H 100 07/07/23 14:06 36.5 C 62 18 141/57 H 100 07/07/23 13:53 36.9 C 63 18 106/87 H 100 07/07/23 12:23 36.5 C 64 18 145/78 H 100 07/07/23 12:08 36.7 C 63 18 128/50 L 100 07/07/23 10:07 37.1 C 73 20 140/44 H 100 - Physical Exam General Appearance: positive: No acute distress Eyes Bilateral: positive: Normal inspection ENT: positive: ENT inspection nml, No signs of dehydration Neck: positive: Nml inspection, No JVD, Trachea midline Respiratory: positive: Chest non-tender, Breath sounds nml Cardiovascular: positive: Systolic murmur (Irregular, 3/6, best heard at pulmonic region) Abdomen: positive: Non-tender, No organomegaly, No distention Skin: positive: Color nml, No rash, Warm, Dry Extremities: positive: Non-tender, Nml appearance, No pedal edema Neurologic/Psychiatric: positive: Oriented x3, Motor nml, Mood/affect nml Sepsis Event Note (H) - Evaluation Current Stage of Sepsis: Ruled out Conclusion/Plan - Problem List (1) Symptomatic anemia Conclusion/Plan: Mr. Henderson has been symptomatic w/ SOB and fatigue for roughly 3 weeks, states he is unable to take a shower w/o feeling depleted. Though he has anemia hx, chart review shows a normal Hgb for him is around 11. He denies having symptoms to this degree in the past and notes this has severely impacted his quality of life. His Hgb of 5.3 was seen in ED today; 5.7 was drawn yesterday from clinic. ED workup also uncovered positive guaiac test and pt is scheduled for an EGD procedure tomorrow morning. Plan: Pt to be admitted to inpatient status d/t to SOB and fatigue getting progressively worse over the past 3 weeks. Pt to receive 2 units of blood today and reassess Hgb value tonight and daily. EGD scheduled for tomorrow (07/08) will determine further disposition. (2) Upper GI bleed Conclusion/Plan: Pt found to have positive guaiac test in ED. In addition to his daily aspirin, he reports taking 1-2 aspirin at night to help him sleep, which he feels has bee n effective. No other anticoags on board. Pt has GERD hx and reports drinking several cups of coffee daily. No history of PUD, Chron's, IBS or known cancer. Dr. Holman met and discussed the EGD with the patient. Pt is understanding and agreeable to the EGD procedure, however pt denied tandem colonoscopy offered by Dr. Holman. Plan: Dr. Holman to perform EGD procedure tomorrow morning; will await results to further guide treatment/dispo. (3) S/P AVR Conclusion/Plan: Pt asked when his last echo was performed, he reports it was done 11 years ago around timing of AVR. Pt last saw unhairing inspector, Mc Turner, approximately 2 years ago. Pt reports unhairing inspector advised pt to keep taking medications as prescribed w/ no other treatment updates. Plan: Pt to receive an echocardiogram on 07/08 as his AVR is now over 10 years old and his systolic murmur has increased in intensity. (4) Peripheral vascular disease with claudication Conclusion/Plan: Pt reports he can walk approximately 1 block before experiencing cramping pain in his bilateral calves. He has an extensive smoking history of about 60 years; states he quit smoking in 2019. He reports trialing medication to alleviate claudication but developed an abdominal rash and was advised to discontinue. Has been evaluated by a vascular surgeon, however pt refused operative treatment d/t negative experiences from acquaintances. Plan: Monitoring for complications while admitted. To be managed intermediate frame tender in the outpatient setting. No ASA to be administered until results of EGD known. (5) Hypertension with heart disease Conclusion/Plan: Pt is on medications (lisinopril, metoprolol, spirinolactone) to manage his HTN w/ his CHF history. Currently, pt's meds have been held to avoid hypotension in the setting of his current GI bleed presentation. Plan: Restart home medication regimen once deemed medically appropriate and potential bleeding source has been treated. - Lab Results Fish Bones: 07/08/23 16:13 07/08/23 04:44 - Other Other Results/Comments: Attestation: The patient is expected to be hospitalized for greater than 2 midnights and is expected to be discharged or transferred to another facility within 96 hours: Yes Core Measures - Anticipated LOS I expect patient to be DC'd or transferred within 96 hours.: Yes
[2023-07-07] MEDS: SODIUM CHLORIDE FLUSH 0.9% 10 ML SYRINGE IVP SCH (21:21)
[2023-07-08] MEDS: SODIUM CHLORIDE FLUSH 0.9% 10 ML SYRINGE IVP SCH ×2 (00:45→11:13)
[2023-07-08 05:40] LABS: BASOPHILS # (AUTO) 0.1 10^3/uL (0.0-0.1); BASOPHILS % (AUTO) 1.1 %; EOSINOPHILS # (AUTO) 0.5 10^3/uL (0.0-0.7); EOSINOPHILS % (AUTO) 5.4 %; LYMPHOCYTES # (AUTO) 1.4 10^3/uL (1.5-3.5); LYMPHOCYTES % (AUTO) 16.9 %; MEAN CORPUSCULAR HEMOGLOBIN 28.2 pg (27.0-31.0); MEAN CORPUSCULAR HGB CONC 31.8 g/dL (32.0-36.0); MEAN CORPUSCULAR VOLUME 88.7 fL (80.0-94.0); MEAN PLATELET VOLUME 11.4 fL (7.4-11.4); MONOCYTES # (AUTO) 0.9 10^3/uL (0.0-1.0); MONOCYTES % (AUTO) 10.5 %; NEUTROPHILS # (AUTO) 5.6 10^3/uL (1.5-6.6); NEUTROPHILS % (AUTO) 65.9 %; PLT - PLATELET COUNT 183 10^3/uL (130-450); RED BLOOD COUNT 2.48 10^6/uL (4.70-6.10); RED CELL DISTRIBUTION WIDTH 17.1 % (12.0-15.0); WHITE BLOOD COUNT 8.5 x10^3/uL (4.8-10.8)
[2023-07-08 06:15] LABS: ALBUMIN 3.6 g/dL (3.2-5.5); ALBUMIN/GLOBULIN RATIO 1.6 (1.0-2.2); BILIRUBIN,TOTAL 0.6 mg/dL (0.2-1.0); CALCIUM 8.6 mg/dL (8.5-10.3); CREATININE 1.1 mg/dL (0.6-1.3); TOTAL PROTEIN 5.8 g/dL (6.4-8.9)
[2023-07-08] MEDS ORDERED: NICOTINE 14 MG PATCH TOP SCH (12:47)
[2023-07-08] MEDS ORDERED: ACETAMINOPHEN 1,000 MG/100 ML 1,000 MG/100 ML BAG IV ONE (12:48)
--- NOTE | 2023-07-08 12:48 | PHARMACY PROGRESS NOTE ---
- Best Possible Medication History Admit Date and Time: 07/07/23 1421 Processed by: Pharmacy Medication History completed: Yes Patient Interview: Completed Secondary Source(s): Insurance records As the person ultimately responsible for medication therapy, providers are able to order a medication from an existing home medication list in [facility] via the "Reconcile Routine" prior to Confirmation of that medication by developer support engineer. Such practice is discouraged except when the physician, in their clinical judgment, deems that a medical need exists for a medication without regard to previous use.
--- NOTE | 2023-07-08 13:45 | ANESTHESIA ---
Pre-Anesthesia VS, & Labs - Diagnosis gi bleed - Procedure EGD Vital Signs: Temp Pulse Resp BP Pulse Ox O2 Flow Rate 36.6 C 61 18 144/75 H 97 07/08/23 11:12 07/08/23 11:12 07/08/23 11:12 07/08/23 11:12 07/08/23 11:12 Height: 5 ft 11 in Weight (kg): 88 kg Body Mass Index: 27.0 BMI Classification: Overweight - NPO >8 hours - Lab Results Current Lab Results: Laboratory Tests 07/08/23 04:44: Sodium 140, Potassium 4.0, Chloride 108, Carbon Dioxide 24, Anion Gap 8.0, BUN 23 H, Creatinine 1.1, Estimated GFR (MDRD) 64 L, Glucose 89, Calcium 8.6, Total Bilirubin 0.6, AST 13, ALT 8 L, Alkaline Phosphatase 41 L, Total Protein 5.8 L, Albumin 3.6, Globulin 2.2, Albumin/Globulin Ratio 1.6 07/08/23 04:44: WBC 8.5, RBC 2.48 L, Hgb 7.0 L*, Hct 22.0 L, MCV 88.7, MCH 28.2, MCHC 31.8 L, RDW 17.1 H, Plt Count 183, MPV 11.4, Neut # (Auto) 5.6, Lymph # (Auto) 1.4 L, [place] # (Auto) 0.9, Eos # (Auto) 0.5, Baso # (Auto) 0.1, Absolute Nucleated RBC 0.00, Nucleated RBC % 0.0 07/07/23 19:55: Hgb 7.1 L 07/07/23 10:26: Blood Type Recheck O POSITIVE 07/07/23 10:24: Blood Type O POSITIVE, Antibody Screen NEGATIVE, Crossmatch IS Only See Detail 07/07/23 10:24: Sodium 135, Potassium 4.4, Chloride 104, Carbon Dioxide 24, Anion Gap 7.0, BUN 30 H, Creatinine 1.2, Estimated GFR (MDRD) 58 L, Glucose 105 H, Calcium 8.8 07/07/23 10:24: PT 12.5, INR 1.1 07/07/23 10:24: WBC 9.5, RBC 1.82 L, Hgb 5.3 L*, Hct 17.1 L*, MCV 94.0, MCH 29.1, MCHC 31.0 L, RDW 14.3, Plt Count 225, MPV 11.3, Neut # (Auto) 7.2 H, Lymph # (Auto) 1.3 L, [place] # (Auto) 0.8, Eos # (Auto) 0.3, Baso # (Auto) 0.1, Absolute Nucleated RBC 0.00, Nucleated RBC % 0.0 Fish Bones: 07/08/23 04:44 07/08/23 04:44 Home Medications and Allergies Home Medications: Ambulatory Orders Atorvastatin Calcium 40 mg PO HS 07/07/23 Lansoprazole [Prevacid] 30 mg PO DAILY 07/08/23 Active Medications Acetaminophen (Acetaminophen 325 Mg Tablet) 650 mg PO Q4HR PRN PRN Reason: Pain 1 to 4, or Fever Nicotine (Nicotine 14 Mg Patch) 1 patch TOP DAILY [facility] Last Admin: 07/08/23 13:20 Dose: Not Given Ondansetron HCl (Ondansetron 4 Mg/2 Ml Vial) 4 mg IVP Q6HR PRN PRN Reason: Nausea / Vomiting Sodium Chloride (Sodium Chloride Flush 0.9% 10 Ml Syringe) 10 ml IVP PRN PRN PRN Reason: NEEDED PER PROVIDER ORDERS Sodium Chloride (Sodium Chloride Flush 0.9% 10 Ml Syringe) 10 ml IVP 0100,0900,1700 [facility] Last Admin: 07/08/23 11:13 Dose: 10 ml Ascorbic Acid [Vitamin C] 1,000 mg PO DAILY 07/21/17 Aspirin [Aspirin EC] 81 mg PO DAILY 07/21/17 Glucosamine Sulfate 1,500 mg PO DAILY 07/21/17 Metoprolol Tartrate [Lopressor] 50 mg PO BID 07/21/17 Mv-Min/Folic/K1/Lycopen/Lutein [Centrum Silver Men Tablet] 1 tab PO DAILY 07/21/17 Spironolactone 25 mg PO DAILY 07/21/17 Ubidecarenone [Co Q-10] 300 mg PO DAILY 07/21/17 lisinopriL [Lisinopril] 20 mg PO DAILY 07/21/17 Atorvastatin Calcium 40 mg PO HS 07/07/23 Lansoprazole [Prevacid] 30 mg PO DAILY 07/08/23 Allergies/Adverse Reactions: Allergies Allergy/AdvReac Type Severity Reaction Status Date / Time oxycodone AdvReac Nausea Verified 07/07/23 10:09 Anes History & Medical History - Anesthetic History Anesthesia Complications: reports: No previous complications - Medical History Cardiovascular: reports: Congestive heart failure, Hypertension, Peripheral Vascular Disease, Atrial fibrillation, Valve disorder (S/P tissue AVR) Pulmonary: reports: None Gastrointestinal: reports: Hiatal hernia (Pt reports he "aspirates" food at times d/t his hernia), Chronic constipation Urinary: reports: None Neuro: reports: None Musculoskeletal: reports: Osteoarthritis Endocrine/Autoimmune: reports: None Blood Disorders: reports: Anemia Skin: reports: Eczema Smoking Status: Former smoker History of Cancer?: Yes Other Past Medical History: chews nicotine gum - Surgical History General: reports: Cholecystectomy Cardiothoracic: reports: Valve replacement (Aortic valve replacement) Orthopedic: reports: Arthroscopic surgery (Shoulder and knee) Dermatologic: reports: Skin cancer surgery Exam General: Alert, Oriented x3, Cooperative Dental: WNL Mouth Opening: Greater than 4 Fingerbreadths Neck Mobility: Reduced Mallampati classification: II Thyromental Distance: greater than 6 cm Respiratory: Lungs clear Cardiovascular: Regular rate Plan Anesthesia Type: Total IV Consent for Procedure(s) Verified and Reviewed: Yes Code Status: Do Not Attempt Resuscitation (spoke with patient and , agrees to meds and airway mangement. No compressions, cardioversion, shock or pacing.) ASA classification: 3-Severe systemic disease Is this case an emergency?: Yes
[2023-07-08] MEDS ORDERED: LIDOCAINE-PF 2% 10 ML AMP SUBQ ONE (13:47)
[2023-07-08] MEDS ORDERED: PROPOFOL 200 MG/20 ML VIAL IVP ONE (13:47)
--- NOTE | 2023-07-08 14:42 | PROVIDER PROGRESS NOTE ---
Progress Note General Surgery Brief Procedure Note (see "Provation" for details) Preop Diagnosis: Anemia, GERD Postop Diagnosis: Small HH, no esophagitis, tumors, or varices no gastritis, tumors, ulcers, no duodenal ulcers or duodenitis. Procedure: EGD Recommendation: 1) PPI for symptoms 2) Discharge at discretion of Medical Hospitalist Fran Holman MD, [facility] General Surgery Service
--- NOTE | 2023-07-08 15:02 | ANESTHESIA POST OP EVALUATION ---
Anesthesia Post Eval - Post Anesthesia Eval Vitals: Last Vital Signs Temp 36.6 C 07/08/23 14:30 Pulse 65 07/08/23 14:30 Resp 18 07/08/23 14:30 BP 129/50 L 07/08/23 14:30 Pulse Ox 98 07/08/23 14:30 O2 Flow Rate CV Function Including HR & BP: Stable Pain Control: Satisfactory Nausea & Vomiting: Negative Mental Status: Baseline Respiratory Status: Airway Patent Hydration Status: Satisfactory Anesthesia Complications: None
--- NOTE | 2023-07-08 15:53 | DISCHARGE SUMMARY ---
Discharge Summary Admit Date: 07/07/23 Discharge Date: 07/08/23 Discharging Provider: Samina Pearce MD Primary Care Provider: SLOAN Andrade Code Status: Do Not Attempt Resuscitation Condition at Discharge: Fair Discharge Disposition: 01 Home, Self Care - DIAGNOSES Discharge Diagnoses with Status of Each Condition: (1) Symptomatic anemia IMPROVED (2) Upper GI bleed IMPROVED (3) S/P AVR CHRONIC (4) Peripheral vascular disease with claudication CHRONIC (5) Hypertension with heart disease CHRONIC - HPI History of Present Illness: Mr. Henderson is an 83 y/o M, presents POV to ED with SOB and fatigue for the last 3 weeks. History significant for anemia, AVR, PVD, and HTN. He takes aspirin daily and no other anticoagulants. He went to the clinic 07/06/23, labs were drawn. On 07/07, he was advised to come to the ED because his hemoglobin was 5.7. Since his onset of SOB and fatigue 3 weeks ago, he reports intermittently taking additional aspirin at night to aid with sleep. He denies taking extra ASA every night because he "knows what it does to your stomach." He endorses headache, lightheadedness, and chronic constipation. He denies abdominal pain, nausea, vomiting, chest pain, hematochezia, or dark/tarry stools. Denies history of GI bleeding or any form of cancer. He was admitted from ED for SOB and fatigue, with a Hgb of 5.3, and a blood transfusion was initiated. - CONSULTS | PROCEDURES Consultations: Dr. Rolan Holman MD Procedures: EGD performed on 07/08/[address] Holman - HOSPITAL COURSE Hospital Course: (1) Symptomatic Anemia Mr. Henderson found to have a Hgb of 5.3 w/ positive guiaic in ED. On admission, Hgb improved s/p 2 units on 07/07, however since he was still borderline at 7.1 that evening, an additional unit was given the morning of 07/08. Pt felt improved overall and denied recurrence of his SOB when walking w/ RN on 07/08 prior to his EGD. Pt discharged before final Hgb results available as pt was becoming restless and agitated; final Hgb drawn for PCP f/u and reference. (2) Upper GI bleed Pt found to have positive guaiac test in ED. In addition to daily aspirin, he reported taking 1-2 aspirin at night for sleep. EGD negative for ulcers, polyps, or erosions; no source of hemorrhage uncovered as pt declined tandem colonoscopy offered by Dr. Holman. Dr. Holman advised Protonix BID for symptomatic treatment, which was prescribed. Recommended patient take melatonin to address difficulty w/ sleep as opposed to multiple aspirin at night. (3) S/P AVR Pt reported AVR done 11 years ago, no Echo since. Echo ordered while admitted, however d/t Echo lab, his Echo was delayed and not completed during hospitalization. Recommend outpatient f/u as pt's systolic murmur is now rated at 3/6 intensity. (4) Peripheral vascular disease with claudication Pt reports he can walk about 1 block before experiencing cramping pain in bilateral calves. Has extensive smoking history of about 60 years; states he quit smoking in 2019, however he wanted a cigarette during admission. PVD to be managed in outpatient setting. (5) Hypertension with heart disease Pt on medications (lisinopril, metoprolol, spirinolactone) for HTN and CHF. Pt to resume medications s/p discharge home. - ALLERGIES Allergies/Adverse Reactions: Allergies Allergy/AdvReac Type Severity Reaction Status Date / Time oxycodone AdvReac Nausea Verified 07/07/23 10:09 - MEDICATIONS Home Medications: Ambulatory Orders Medication Instructions Recorded Confirmed Ascorbic Acid [Vitamin C] 1,000 mg PO DAILY 07/21/17 07/08/23 Aspirin [Aspirin EC] 81 mg PO DAILY 07/21/17 07/07/23 Glucosamine Sulfate 1,500 mg PO DAILY 07/21/17 07/08/23 Metoprolol Tartrate [Lopressor] 50 mg PO BID 07/21/17 07/07/23 Mv-Min/Folic/K1/Lycopen/Lutein 1 tab PO DAILY 07/21/17 07/08/23 [Centrum Silver Men Tablet] Spironolactone 25 mg PO DAILY 07/21/17 07/07/23 Ubidecarenone [Co Q-10] 300 mg PO DAILY 07/21/17 07/08/23 lisinopriL [Lisinopril] 20 mg PO DAILY 07/21/17 07/07/23 Atorvastatin Calcium 40 mg PO HS 11/02/23 11/02/23 Lansoprazole [Prevacid] 30 mg PO DAILY 07/08/23 07/08/23 Pantoprazole [Protonix] 40 mg PO BID #60 tablet 07/08/23 Home Medications Other | Comments: Recommended patient take melatonin to address difficulty w/ sleep as opposed to multiple aspirin at night. - PHYSICAL EXAM AT DISCHARGE General Appearance: positive: No acute distress, Alert Eyes Bilateral: positive: Normal inspection ENT: positive: ENT inspection nml, No signs of dehydration Neck: positive: Nml inspection, No JVD Respiratory: positive: Chest non-tender, No respiratory distress, Breath sounds nml Cardiovascular: positive: Systolic murmur (3/6, best heard at the base of heart) Abdomen: positive: Non-tender, No distention Skin: positive: Color nml, No rash, Warm, Dry Extremities: positive: Non-tender, Nml appearance, No pedal edema Neurologic/Psychiatric: positive: Oriented x3, Motor nml - LABS Result Diagrams: 07/08/23 16:13 07/08/23 04:44 - SEPSIS Current Stage of Sepsis: Ruled out - FOLLOW UP Follow Up: Pt reports he has a scheduled appointment w/ his PCP on 07/15. Encouraged pt to keep this appointment and participate in care planning. - TIME SPENT Time Spent in Discharge (Minutes): 45
--- NOTE | 2023-07-08 16:16 | Discharge Plan ---
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 You needed 3 units of blood transfused. Your vital signs have been stable after those transfusion. The final hemoglobin blood test was measured, but result not available before you left. You should see your primary care doctor after discharge, who can check on that and also refer you for an outpatient colonoscopy. We also planned for you to have an Echocardiogram, to evaluate the aortic valve replacement, but that was not done before you left. You did undergo upper endoscopy and this did not show evidence of an ulcer or gastritis. You are being discharged home today and advised to NOT take additional doses of aspirin for pain control. You should only be taking 1 aspirin daily with your history of cardiac and vascular disease. Extra aspirin is likely adding to excess acid in your intestines and may be causing bleeding. Please take Tylenol or other pain medications to treat your pain. Plan of Treatment: You may resume all your usual pre-hospital medications. A new prescription for Protonix has also been electronically sent to your pharmacy. Care Goals: Improvement in symptoms and stabilization are the goals. Assessment: These instructions are provided for you as reminders. Additional Instructions or Follow Up instructions: If you have new or worsening symptoms, call your Primary Care Provider, or your Sl[facility] Service [facility] Setter or Vascular Surgeon for advice, or come to the ER. No Smoking: If you smoke, Please STOP! Call for help.
[2023-07-08 17:08] VITALS: BP 152/69; O2SAT 100
== END 2023-07-08 16:40 | disposition home or self-care (01) | DRG 812 ==
LOC: ED 09:45 → MS2 14:21
PROVIDERS: ADMIT Internal Medicine; ATTEND Internal Medicine
PROC: 30233N1 Transfusion of Nonautologous Red Blood Cells into Peripheral Vein, Percutaneous Approach (ICD-10-PCS; 2023-07-08)
PROC: 0DJ08ZZ Inspection of Upper Intestinal Tract, Via Natural or Artificial Opening Endoscopic (ICD-10-PCS; principal; 2023-07-08 12:00)
DX: D50.0 Iron deficiency anemia secondary to blood loss (chronic) (principal); D64.9 Anemia, unspecified; K92.2 Gastrointestinal hemorrhage, unspecified; Z95.3 Presence of xenogenic heart valve; I73.9 Peripheral vascular disease, unspecified; I11.0 Hypertensive heart disease with heart failure; F17.200 Nicotine dependence, unspecified, uncomplicated; I50.9 Heart failure, unspecified; I48.91 Unspecified atrial fibrillation; Z87.891 Personal history of nicotine dependence; Z66 Do not resuscitate; K21.9 Gastro-esophageal reflux disease without esophagitis; R01.1 Cardiac murmur, unspecified; Z79.82 Long term (current) use of aspirin; K59.09 Other constipation; K44.9 Diaphragmatic hernia without obstruction or gangrene
CPT/HCPCS: 36415; 80048; 80053; 82272; 85018; 85025; 85610; 86850; 86900; 86901; 86920; 96374; 99285; J0131; P9016

== ENCOUNTER 2023-09-15 12:18 | Day surgery (SDC) | payer MEDICARE, OTHER ==
[2023-09-15] MEDS ORDERED: LACTATED RINGERS 1,000 ML IV ONE ×3 (12:51→14:29)
--- NOTE | 2023-09-15 13:27 | ANESTHESIA ---
Pre-Anesthesia VS, & Labs - Diagnosis ANEMIA - Procedure COLONOSCOPY Vital Signs: Temp Pulse Resp BP Pulse Ox O2 Flow Rate 36.7 C 76 16 150/65 H 100 09/15/23 12:35 09/15/23 12:35 09/15/23 12:35 09/15/23 12:35 09/15/23 12:35 Height: 5 ft 11 in Weight (kg): 86.4 kg Body Mass Index: 26.5 BMI Classification: Overweight - NPO Last Fluid Intake: LAST PREP 929 - Lab Results Other Lab Results: HGB 8.7 IN MID AUGUST, HAS HAD AN IRON TRANSFUSION SINCE THEN, LABS REDRAWN ELSEWHERE, SAYS HE'S STILL ANEMIC Home Medications and Allergies Ascorbic Acid [Vitamin C] 1,000 mg PO DAILY 07/21/17 Aspirin [Aspirin EC] 81 mg PO DAILY 07/21/17 Glucosamine Sulfate 1,500 mg PO DAILY 07/21/17 Metoprolol Tartrate [Lopressor] 50 mg PO BID 07/21/17 Mv-Min/Folic/K1/Lycopen/Lutein [Centrum Silver Men Tablet] 1 tab PO DAILY 07/21/17 Spironolactone 25 mg PO DAILY 07/21/17 lisinopriL [Lisinopril] 20 mg PO DAILY 07/21/17 Atorvastatin Calcium 40 mg PO HS 07/07/23 Lansoprazole [Prevacid] 30 mg PO DAILY 07/08/23 Allergies/Adverse Reactions: Allergies Allergy/AdvReac Type Severity Reaction Status Date / Time oxycodone AdvReac Nausea Verified 07/07/23 10:09 Anes History & Medical History - Anesthetic History Anesthesia Complications: reports: No previous complications Family history of Anesthesia Complications: Denies Family history of Malignant Hyperthermia: Denies - Medical History Cardiovascular: reports: Congestive heart failure, Hypertension, Peripheral Vascular Disease, Atrial fibrillation (ISOLATED INCIDENT 13 YEARS AGO; NOW IN [facility]), Valve disorder Pulmonary: reports: None Gastrointestinal: reports: Hiatal hernia, Chronic constipation Urinary: reports: None Neuro: reports: None Musculoskeletal: reports: Osteoarthritis Endocrine/Autoimmune: reports: None Blood Disorders: reports: Anemia Skin: reports: Eczema Smoking Status: Former smoker - Surgical History General: reports: Cholecystectomy Cardiothoracic: reports: Valve replacement Orthopedic: reports: Arthroscopic surgery Dermatologic: reports: Skin cancer surgery Exam General: Alert, Oriented x3 Dental: WNL Mouth Openin Fingerbreadth Neck Mobility: Normal Mallampati classification: II Thyromental Distance: 4-6 cm Plan Anesthesia Type: Total IV Consent for Procedure(s) Verified and Reviewed: Yes Code Status: Attempt Resuscitation ASA classification: 3-Severe systemic disease Is this case an emergency?: No
[2023-09-15] MEDS ORDERED: PROPOFOL 200 MG/20 ML VIAL IVP ONE (13:38)
[2023-09-15 14:54] VITALS: BP 129/45; O2SAT 99
--- NOTE | 2023-09-16 11:50 | ANESTHESIA POST OP EVALUATION ---
Anesthesia Post Eval - Post Anesthesia Eval Vitals: Last Vital Signs Temp 36.6 C 09/15/23 14:50 Pulse 60 09/15/23 14:50 Resp 14 09/15/23 14:50 BP 129/45 L 09/15/23 14:50 Pulse Ox 99 09/15/23 14:50 O2 Flow Rate CV Function Including HR & BP: Stable Pain Control: Satisfactory Nausea & Vomiting: Negative Mental Status: Baseline Respiratory Status: Airway Patent Hydration Status: Satisfactory Anesthesia Complications: None
== END 2023-09-15 12:19 | disposition home or self-care (01) ==
LOC: SDS 12:18
PROVIDERS: ATTEND Surgery
PROC: 0D5H8ZZ Destruction of Cecum, Via Natural or Artificial Opening Endoscopic (ICD-10-PCS; principal; 2023-09-15 13:45)
DX: D64.9 Anemia, unspecified (principal); R19.5 Other fecal abnormalities; K55.20 Angiodysplasia of colon without hemorrhage; I11.0 Hypertensive heart disease with heart failure; I50.9 Heart failure, unspecified; Z87.891 Personal history of nicotine dependence
CPT/HCPCS: 45384; J7120

== ENCOUNTER 2024-02-06 10:51 | Outpatient (CLI) | payer MEDICARE, OTHER ==
--- NOTE | 2024-02-06 12:25 | XRAY Report ---
PROCEDURE: Knee 3V RT INDICATIONS: OSTEOARTHRITIS OF RIHT KNEE TECHNIQUE: 3 views of the knee(s) were acquired. COMPARISON: None. FINDINGS: Bones: No fractures or dislocations. No suspicious bony lesions. Tricompartmental osteoarthritic ch anges with osteophytosis and moderate medial compartment joint space narrowing. Soft tissues: No knee joint effusion. No suspicious soft tissue calcifications or masses. Atheroscle rotic vascular calcifications. Chondrocalcinosis. IMPRESSION: 1.No acute bony abnormality. 2.Moderate degenerative changes of the knee. 3.Chondrocalcinosis, differential includes but is not limited to CPPD arthropathy, hyperparathyroidis m or hemachromatosis. Reviewed by: Salvador Edwards MD on 02/06/2024 12:24 PM PDT Approved by: Salvador Edwards MD on 02/06/2024 12:24 PM PDT Station ID: [id number]
== END 2024-02-06 10:52 | disposition home or self-care (01) ==
LOC: DI.S 10:51
PROVIDERS: ATTEND Registered Nurse
DX: M17.11 Unilateral primary osteoarthritis, right knee (principal); M11.261 Other chondrocalcinosis, right knee

== ENCOUNTER 2024-02-21 08:00 | Outpatient (CLI) | payer MEDICARE, OTHER ==
[2024-02-21 15:22] LABS: BASOPHILS # (AUTO) 0.1 10^3/uL (0.0-0.1); BASOPHILS % (AUTO) 1.1 %; EOSINOPHILS # (AUTO) 0.5 10^3/uL (0.0-0.7); EOSINOPHILS % (AUTO) 4.5 %; HCT - HEMATOCRIT 33.6 % (42.0-52.0); HGB - HEMOGLOBIN 10.4 g/dL (14.0-18.0); LYMPHOCYTES # (AUTO) 1.5 10^3/uL (1.5-3.5); LYMPHOCYTES % (AUTO) 13.6 %; MEAN CORPUSCULAR HEMOGLOBIN 34.3 pg (27.0-31.0); MEAN CORPUSCULAR VOLUME 110.9 fL (80.0-94.0); MONOCYTES # (AUTO) 0.9 10^3/uL (0.0-1.0); MONOCYTES % (AUTO) 7.8 %; NEUTROPHILS # (AUTO) 8.2 10^3/uL (1.5-6.6); NEUTROPHILS % (AUTO) 72.6 %; PLT - PLATELET COUNT 182 10^3/uL (130-450); RED BLOOD COUNT 3.03 10^6/uL (4.70-6.10); RED CELL DISTRIBUTION WIDTH 14.5 % (12.0-15.0); WHITE BLOOD COUNT 11.2 x10^3/uL (4.8-10.8)
[2024-02-21 15:31] LABS: SLIDE REVIEW? Indicated
[2024-02-21 15:43] LABS: % IRON SATURATION 59 % (20-50); ALBUMIN 4.2 g/dL (3.2-5.5); ALBUMIN/GLOBULIN RATIO 1.6 (1.0-2.2); ALKALINE PHOSPHATASE 60 IU/L (42-121); ALT ALANINE AMINOTRANSFERASE 13 IU/L (10-60); AST ASPARTATE AMINOTRANSFERASE 17 IU/L (10-42); BILIRUBIN,TOTAL 0.3 mg/dL (0.2-1.0); BUN - BLOOD UREA NITROGEN 27 mg/dL (6-20); CALCIUM 9.3 mg/dL (8.5-10.3); CARBON DIOXIDE - CO2 29 mmol/L (21-32); CHLORIDE 104 mmol/L (101-111); CREATININE 1.1 mg/dL (0.6-1.3); CRP - C-REACTIVE PROTEIN < 0.5 mg/dL (<0.5); GFR - MDRD 64 (>89); GLUCOSE 100 mg/dL (74-104); IRON 209 ug/dL (50-212); POTASSIUM 5.1 mmol/L (3.5-4.5); SODIUM 136 mmol/L (135-145); TOTAL IRON BINDING CAPACITY 354 ug/dL (250-450); TOTAL PROTEIN 6.9 g/dL (6.4-8.9); TRANSFERRIN 253 mg/dL (203-362); URIC ACID 6.4 mg/dL (4.4-7.6)
[2024-02-21 16:00] LABS: FERRITIN 22.9 ng/mL (23.9-336.2)
[2024-02-21 16:29] LABS: PLATELET ESTIMATE, MANUAL NORMAL (130-450,000) (NORMAL); PLATELET MORPHOLOGY NORMAL APPEARANCE (NORMAL)
== END 2024-02-21 23:59 | disposition home or self-care (01) ==
LOC: LAB.S 08:00
PROVIDERS: ATTEND Registered Nurse
DX: M11.80 Other specified crystal arthropathies, unspecified site (principal); I73.9 Peripheral vascular disease, unspecified; D50.9 Iron deficiency anemia, unspecified
CPT/HCPCS: 36415; 80053; 82728; 83540; 83970; 84466; 84550; 85025; 86140